=== PATIENT | female | born 1975 | race Two or more races ===

== ENCOUNTER 2023-08-30 19:31 | Inpatient (IN) | payer MEDICAID, OTHER ==
[~2023-08-30] VITALS: Ht 160 cm; Wt 95.0 kg
[2023-08-30 20:13] LABS: Basophils # (auto) 0.1 10 ^3/uL (0-0.2); Basophils % (auto) 0.5 % (0.0-2.0); Eosinophils # (auto) 0.1 10 ^3/uL (0-0.8); Eosinophils % (auto) 1.1 % (0.0-7.0); Hematocrit 37.2 % (36.0-46.0); Hemoglobin 11.6 g/dL (12.2-16.2); Lymphocytes # (auto) 2.3 10 ^3/uL (0.4-5.4); Lymphocytes % (auto) 21.5 % (10.0-50.0); Mean Corpuscular Hemoglobin 22.9 pg (28.0-32.0); Mean Corpuscular Hgb Conc. 31.1 g/dL (32.0-36.0); Mean Corpuscular Volume 73.5 fL (80.0-100.0); Monocytes # (auto) 0.6 10 ^3/uL (0-1.3); Monocytes % (auto) 5.3 % (0.0-12.0); Neutrophils # (auto) 7.6 10 ^3/uL (1.6-8.6); Neutrophils % (auto) 71.6 % (37.0-80.0); Red Blood Cells 5.06 10^6/uL (4.0-5.20); Red Cell Distribution Width 17.4 % (11.8-14.3); White Blood Cell 10.6 10^3/uL (4.4-10.8)
[2023-08-30 20:26] LABS: INR 1.07 (0.9-1.15); Partial Thromboplastin Time 35.9 SEC (24.5-34.5); Prothrombin Time 11.2 sec (9.3-11.8)
[2023-08-30 20:32] LABS: Alkaline Phosphatase 67 U/L (46-116); Anion Gap 8 (5-15); Aspartate Aminotransferase 12 U/L (13-40); BUN/Creatinine Ratio 10.6 (10.0-20.0); Blood Urea Nitrogen 7 mg/dL (9-23); Calcium 8.8 mg/dL (8.7-10.4); Carbon Dioxide 24 mmol/L (20-30); Chloride 105 mmol/L (98-107); Glucose 114 mg/dL (74-106); Magnesium 1.9 mg/dL (1.6-2.6); Potassium 3.6 mmol/L (3.5-5.1); Sodium 137 mmol/L (136-145)
[2023-08-30 20:33] LABS: Bilirubin, Total 0.5 mg/dL (0.2-1.0); Total Protein 7.9 g/dL (5.7-8.2)
[2023-08-30 20:43] LABS: Alanine Aminotransferase < 9 U/L (7-40)
[2023-08-30 21:27] LABS: Urine Bacteria NONE SEEN /hpf (None Seen); Urine Blood 3+ /uL (Negative); Urine Clarity Clear (Clear); Urine Color Yellow (Yellow); Urine Mucus FEW (None Seen); Urine Protein, UAD TRACE (Negative); Urine Specific Gravity 1.029 (1.001-1.035); Urine Urobilinogen Normal (Negative); Urine WBC 8 /hpf (0 - 5)
[2023-08-30] MEDS: ONDANSETRON HCL 4 MG/2 ML VIAL IV ONE (23:55)
[2023-08-30] MEDS: cefTRIAXone 1GM/50ML D5W 50 ML IV ONE (23:56)
[2023-08-31] VITALS (8 sets, daily range): BP systolic 101–113; BP diastolic 65–77; PULSE 78–85; RESP 15–18; TEMP 97.9; O2SAT 93–96
[2023-08-31] MEDS: IOHEXOL 350 MG/ML 100ML IJ ONE (00:16)
[2023-08-31] MEDS: diphenhdrAMINE HCL 50 MG/1 ML VL IV ONE (01:02)
[2023-08-31] MEDS: DexAMETHasone SOD PHOS 10MG/1ML VIAL INJ IV ONE (01:02)
[2023-08-31] MEDS: metroNIDAZOLE 500MG/100ML 100 ML IV ONE (05:13)
[2023-08-31] MEDS ORDERED: ACETAMINOPHEN 325 MG TAB PO PRN (06:30)
[2023-08-31] MEDS ORDERED: ONDANSETRON HCL 4 MG/2 ML VIAL IV PRN (06:30)
[2023-08-31] MEDS ORDERED: NITROGLYCERIN 0.4 MG SL TAB SL PRN (06:30)
[2023-08-31] MEDS ORDERED: DOCUSATE SOD 100 MG CAP PO PRN (06:30)
[2023-08-31] MEDS ORDERED: MORPHINE SULFATE INJ 2 MG/ml SYRG IV PRN (06:30)
[2023-08-31 06:57] LABS: Basophils # (auto) 0 10 ^3/uL (0-0.2); Basophils % (auto) 0.4 % (0.0-2.0); Eosinophils # (auto) 0 10 ^3/uL (0-0.8); Hematocrit 37.8 % (36.0-46.0); Hemoglobin 11.9 g/dL (12.2-16.2); Lymphocytes # (auto) 0.8 10 ^3/uL (0.4-5.4); Lymphocytes % (auto) 8.6 % (10.0-50.0); Mean Corpuscular Hemoglobin 22.9 pg (28.0-32.0); Mean Corpuscular Hgb Conc. 31.4 g/dL (32.0-36.0); Mean Corpuscular Volume 72.9 fL (80.0-100.0); Monocytes # (auto) 0.1 10 ^3/uL (0-1.3); Monocytes % (auto) 0.9 % (0.0-12.0); Neutrophils # (auto) 7.9 10 ^3/uL (1.6-8.6); Neutrophils % (auto) 90.1 % (37.0-80.0); Nucleated Red Blood Cells % 0.1 %; Red Blood Cells 5.19 10^6/uL (4.0-5.20); Red Cell Distribution Width 17.8 % (11.8-14.3); White Blood Cell 8.8 10^3/uL (4.4-10.8)
[2023-08-31] MEDS: SODIUM CHLORIDE 0.9% 1,000 ML IV SCH (07:02)
[2023-08-31 07:21] LABS: Alkaline Phosphatase 67 U/L (46-116); Anion Gap 6 (5-15); Aspartate Aminotransferase 9 U/L (13-40); BUN/Creatinine Ratio 6.8 (10.0-20.0); Blood Urea Nitrogen 5 mg/dL (9-23); Calcium 8.8 mg/dL (8.5-10.1); Carbon Dioxide 24 mmol/L (20-30); Chloride 105 mmol/L (98-107); Glucose 167 mg/dL (74-106); Potassium 4.2 mmol/L (3.5-5.1); Sodium 135 mmol/L (136-145)
[2023-08-31 07:22] LABS: Bilirubin, Total 0.3 mg/dL (0.2-1.0); Total Protein 7.9 g/dL (5.7-8.2)
[2023-08-31 07:24] LABS: Alanine Aminotransferase < 9 U/L (7-40)
[2023-08-31] MEDS: cefTRIAXone 1GM/50ML D5W 50 ML IV SCH (10:15)
[2023-08-31] MEDS ORDERED: FURO20TA3 PO (12:45)
[2023-08-31] MEDS ORDERED: CARV6.2551 PO (12:45)
[2023-08-31] MEDS ORDERED: APIX5TAB PO (12:45)
[2023-08-31] MEDS ORDERED: PRED2.5T4 PO (12:45)
[2023-08-31] MEDS ORDERED: SPIR25TA8 PO (12:45)
[2023-08-31] MEDS ORDERED: POTA10TA51 PO (12:45)
[2023-08-31] MEDS ORDERED: LEVO150T10 PO (12:45)
[2023-08-31] MEDS ORDERED: SACU1TAB4 PO (12:45)
[2023-08-31] MEDS ORDERED: ASPI325T4 PO (12:45)
[2023-08-31] MEDS: metroNIDAZOLE 500MG/100ML 100 ML IV SCH (13:40)
[2023-09-01] VITALS (8 sets, daily range): BP systolic 104–137; BP diastolic 61–85; PULSE 59–94; RESP 18; TEMP 97.7–98; O2SAT 93–99
[2023-09-01] MEDS: HYDROcodone-ACET 5/325MG TAB PO PRN (00:55)
[2023-09-01 07:06] LABS: Basophils # (auto) 0.1 10 ^3/uL (0-0.2); Eosinophils # (auto) 0.1 10 ^3/uL (0-0.8); Monocytes # (auto) 0.7 10 ^3/uL (0-1.3); White Blood Cell 9.2 10^3/uL (4.4-10.8)
[2023-09-01 07:10] LABS: Basophils % (auto) 0.6 % (0.0-2.0); Eosinophils % (auto) 1.3 % (0.0-7.0); Hematocrit 31.8 % (36.0-46.0); Hemoglobin 9.9 g/dL (12.2-16.2); Lymphocytes # (auto) 2.9 10 ^3/uL (0.4-5.4); Lymphocytes % (auto) 31.6 % (10.0-50.0); Mean Corpuscular Hgb Conc. 31.3 g/dL (32.0-36.0); Mean Corpuscular Volume 73.6 fL (80.0-100.0); Monocytes % (auto) 8.1 % (0.0-12.0); Neutrophils # (auto) 5.4 10 ^3/uL (1.6-8.6); Neutrophils % (auto) 58.4 % (37.0-80.0); Red Blood Cells 4.32 10^6/uL (4.0-5.20); Red Cell Distribution Width 17.5 % (11.8-14.3)
[2023-09-01 07:31] LABS: Albumin 3.4 g/dL (3.2-4.8); Alkaline Phosphatase 52 U/L (46-116); Anion Gap 3 (5-15); Aspartate Aminotransferase < 8 U/L (13-40); BUN/Creatinine Ratio 11.1 (10.0-20.0); Bilirubin, Total 0.2 mg/dL (0.2-1.0); Blood Urea Nitrogen 8 mg/dL (9-23); Calcium 8.1 mg/dL (8.5-10.1); Carbon Dioxide 28 mmol/L (20-30); Chloride 111 mmol/L (98-107); Glucose 108 mg/dL (74-106); Sodium 142 mmol/L (136-145)
[2023-09-01 07:32] LABS: Total Protein 6.4 g/dL (5.7-8.2)
[2023-09-01 07:36] LABS: Alanine Aminotransferase < 9 U/L (7-40)
[2023-09-01] MEDS: LEVOTHYROXINE SODIUM 50 MCG TAB PO SCH (09:33)
[2023-09-01] MEDS: POTASSIUM CHL 10 Meq TABLET PO SCH (09:34)
[2023-09-01] MEDS: SACUBITRIL-VALSARTAN 24mg/26mg TAB PO SCH (09:34)
[2023-09-01] MEDS: ASPirin 81 mg TAB PO SCH (09:34)
[2023-09-01] MEDS: predniSONE 5 MG TAB PO SCH (09:35)
[2023-09-01] MEDS: CARVEDILOL 12.5 MG TAB PO SCH (10:00)
[2023-09-01] MEDS: APIXABAN 5 MG TAB PO SCH (14:01)
[2023-09-01] MEDS: SPIRONOLACTONE 25 MG TAB PO SCH (14:01)
[2023-09-01] MEDS: FUROSEMIDE 20 MG TAB PO SCH (14:02)
[2023-09-02 01:00] VITALS: BP 114/63; PULSE 68; RESP 20; TEMP 97.6; O2SAT 95
[2023-09-02 05:00] VITALS: BP 101/61; PULSE 69; RESP 20; TEMP 97.7; O2SAT 98
[2023-09-02 08:00] VITALS: RESP 18
[2023-09-02 08:36] VITALS: BP 115/55; PULSE 76; RESP 16; TEMP 98.6; O2SAT 98
[2023-09-02] MEDS ORDERED: APIX5TAB PO (10:30)
[2023-09-02] MEDS ORDERED: METR-344 PO (10:36)
[2023-09-02] MEDS ORDERED: LEVO500T91 PO (10:36)
[2023-09-02 11:39] VITALS: BP 115/55; PULSE 76
[2023-09-02 12:42] VITALS: BP 116/82; PULSE 84; RESP 17; TEMP 98.6; O2SAT 99
== END 2023-09-02 18:00 | disposition home or self-care (01) ==
LOC: EDBD 19:31 → ER 19:31 → OVERFLOW 08-31 06:33 → CENTRAL 08-31 12:04
PROVIDERS: ADMIT Nurse Practitioner Family; ATTEND Family Medicine
DX: K80.12 Calculus of gallbladder with acute and chronic cholecystitis without obstruction (principal); I50.31 Acute diastolic (congestive) heart failure; I42.7 Cardiomyopathy due to drug and external agent; I82.B22 Chronic embolism and thrombosis of left subclavian vein; I11.0 Hypertensive heart disease with heart failure; E86.0 Dehydration; N30.00 Acute cystitis without hematuria; E06.3 Autoimmune thyroiditis; E03.9 Hypothyroidism, unspecified; M06.9 Rheumatoid arthritis, unspecified; I25.10 Atherosclerotic heart disease of native coronary artery without angina pectoris; I25.2 Old myocardial infarction; Z88.5 Allergy status to narcotic agent; Z88.8 Allergy status to other drugs, medicaments and biological substances; Z79.01 Long term (current) use of anticoagulants; Z95.810 Presence of automatic (implantable) cardiac defibrillator; Z91.198 Patient's noncompliance with other medical treatment and regimen for other reason; Z86.718 Personal history of other venous thrombosis and embolism; Z82.49 Family history of ischemic heart disease and other diseases of the circulatory system
CPT/HCPCS: 36415; 71045; 71275; 76705; 80053; 81001; 83690; 83735; 83880; 84484; 85025; 85610; 85730; 87086; 93306; 96365; 96375; G0378; J1100; J2405; J3490